=== PATIENT | female | born 1940 | race Caucasian/White ===

== ENCOUNTER 2022-07-22 18:33 | Emergency (ER) | payer MEDICARE, OTHER ==
[2022-07-22 18:44] VITALS: TEMP 98
[2022-07-22 19:18] LABS: Basophils % (A) 0 %; Eosinophils # (A) 0.1 k/uL (0-0.7); Eosinophils % (A) 1 %; HCT 43.7 % (34.0-46.0); HGB 14.8 gm/dL (11.4-16.0); Lymphocytes # (A) 1.9 k/uL (1.0-4.8); Lymphocytes % (A) 14 %; MCHC 33.9 g/dL (31.0-37.0); MCV 97.2 fL (80.0-100.0); Mean Platelet Volume 7.5; Monocytes # (A) 0.5 k/uL (0-1.0); Monocytes % (A) 4 %; Neutrophils # (A) 10.6 k/uL (1.3-7.7); Neutrophils % (A) 80 %; Platelet Count 236 k/uL (150-450); RDW 12.6 % (11.5-15.5); WBC 13.3 k/uL (3.8-10.6)
--- NOTE | 2022-07-22 19:18 | XR ---
EXAMINATION TYPE: XR femur LT DATE OF EXAM: 07/22/2022 7:08 PM INDICATION: Patient age:Female; 81 years old; Reason for study: Fall; COMPARISON: None TECHNIQUE: The left femur was examined in frontal lateral projections. FINDINGS: Acute fracture of the distal left femur around patient's total knee arthroplasty.. No addit ional fractures. The proximal femur looks intact. There is mild degeneration changes of the left hip. IMPRESSION: Prosthetic fracture involving the left femur with displacement posteriorly of the knee.
--- NOTE | 2022-07-22 19:20 | XR ---
EXAMINATION TYPE: XR chest 1V DATE OF EXAM: 07/22/2022 7:08 PM COMPARISON: Chest radiographs from TECHNIQUE: XR chest 1V Frontal view of the chest. CLINICAL INDICATION:Female, 81 years old with history of Difficulty breathing ; FINDINGS: Lungs/Pleura: Low lung volumes are present. There is no evidence of pleural effusion, focal consolida tion, or pneumothorax. Pulmonary vascularity: Unremarkable. Heart/mediastinum: Cardiomediastinal silhouette is prominent in size. Atherosclerotic calcifications are seen in the aorta. Musculoskeletal: No acute osseous pathology. There is fixation hardware in the lower cervical spine. IMPRESSION: Low lung volumes, no acute cardiopulmonary disease/process.
[2022-07-22 19:29] LABS: Albumin 3.6 g/dL (3.5-5.0); Calcium 8.8 mg/dL (8.4-10.2); Potassium 4.3 mmol/L (3.5-5.1); Total Bilirubin 2.5 mg/dL (0.2-1.3); Total Protein 6.2 g/dL (6.3-8.2)
[2022-07-22 20:24] LABS: Partial Thromboplastin Time 23.3 sec (22.0-30.0); Prothrombin Time 10.7 sec (9.0-12.0)
[2022-07-22 20:26] VITALS: BP 108/59; PULSE 90; RESP 16
[2022-07-22] MEDS ORDERED: MORPHINE SULFATE 2 MG/ML SYRINGE IVP STA (20:28)
--- NOTE | 2022-07-22 20:30 | ED ---
General Adult HPI - General Chief complaint: Fall Stated complaint: fall Time Seen by Provider: 07/22/22 18:34 Source: patient, EMS, RN notes reviewed, old records reviewed Mode of arrival: EMS Limitations: no limitations - History of Present Illness Initial comments: This is an 81-year-old female who lost her balance the steps and fell and hurt her distal femur on the left. Patient states she had a knee replacement there are many years ago. Patient states her old doctor was Dr. Galvez. Patient states any movement hurts just above the knee. Patient denies hip pain patient denies ankle or foot pain. Patient denies hitting her head or her neck. Patient denies any upper extremity pain patient denies any back pain belly pain or chest pain. - Related Data Allergies Allergy/AdvReac Type Severity Reaction Status Date / Time hydromorphone [From Dilaudid] AdvReac Hallucinati Verified 07/22/22 18:44 ons Review of Systems ROS Statement: Those systems with pertinent positive or pertinent negative responses have been documented in the HPI. ROS Other: All systems not noted in ROS Statement are negative. Past Medical History Additional Past Medical History / Comment(s): hx of kidney stones Past Surgical History: Appendectomy, Hysterectomy, Orthopedic Surgery, Tonsillectomy Smoking Status: Former smoker Past Alcohol Use History: None Reported Past Drug Use History: None Reported General Exam - General Exam Comments Initial Comments: GENERAL: Patient is well-developed and well-nourished. Patient is nontoxic and well- hydrated and is in moderate distress. ENT: Neck is soft and supple. No significant lymphadenopathy is noted. Oropharynx is clear. Moist mucous membranes. Neck has full range of motion without eliciting any pain. EYES: The sclera were anicteric and conjunctiva were pink and moist. Extraocular movements were intact and pupils were equal round and reactive to light. Eyelids were unremarkable. PULMONARY: Unlabored respirations. Good breath sounds bilaterally. No audible rales rhonc hi or wheezing was noted. CARDIOVASCULAR: There is a regular rate and rhythm without any murmurs gallops or rubs. ABDOMEN: Soft and nontender with normal bowel sounds. SKIN: Skin is clear with no lesions or rashes and otherwise unremarkable. NEUROLOGIC: Patient is alert and oriented x3. Cranial nerves II through XII are grossly intact. Motor and sensory are also intact. Normal speech, volume and content. Symmetrical smile. MUSCULOSKELETAL: Patient is unable to move the left knee. Patient is extremely tender above the left knee and it does appear to be some fullness in that area. Patient has good capillary refill and good pulses distally.. LYMPHATICS: No significant lymphadenopathy is noted PSYCHIATRIC: Normal psychiatric evaluation Limitations: no limitations Course Vital Signs 07/22/22 07/22/22 18:36 20:21 Temperature 98 F Pulse Rate 86 90 Respiratory 18 16 Rate Blood Pressure 148/87 108/59 O2 Sat by Pulse 97 95 Oximetry Medical Decision Making - Medical Decision Making X-ray of the femur was interpreted by me. X-ray shows a distal femur fracture just above the knee replacement. I spoke with Dr. Nuñez and I spoke with the trauma surgeon Dr. Alfaro at [facility] and they both accepted the patient. Patient had a knee immobilizer placed. I interpret EKG EKG shows sinus rhythm at 89 bpm IN interval 144 QRS is 94 QT interval 3 5070 QTC is 44 per patient's EKG shows no ST segment elevation or depression. - Lab Data Result diagrams: 07/22/22 19:13 07/22/22 19:13 Lab Results 07/22/22 07/22/22 07/22/22 Range/Units 19:13 19:13 20:11 WBC 13.3 H (3.8-10.6) k/uL RBC 4.50 (3.80-5.40) m/uL Hgb 14.8 (11.4-16.0) gm/dL Hct 43.7 (34.0-46.0) % MCV 97.2 (80.0-100.0) fL MCH 33.0 (25.0-35.0) pg MCHC 33.9 (31.0-37.0) g/dL RDW 12.6 (11.5-15.5) % Plt Count 236 (150-450) k/uL MPV 7.5 Neutrophils % 80 % Lymphocytes % 14 % Monocytes % 4 % Eosinophils % 1 % Basophils % 0 % Neutrophils # 10.6 H (1.3-7.7) k/uL Lymphocytes # 1.9 (1.0-4.8) k/uL Monocytes # 0.5 (0-1.0) k/uL Eosinophils # 0.1 (0-0.7) k/uL Basophils # 0.0 (0-0.2) k/uL PT 10.7 (9.0-12.0) sec INR 1.0 (<1.2) APTT 23.3 (22.0-30.0) sec Sodium 142 (137-145) mmol/L Potassium 4.3 (3.5-5.1) mmol/L Chloride 112 H (98-107) mmol/L Carbon Dioxide 21 L (22-30) mmol/L Anion Gap 9 mmol/L BUN 21 H (7-17) mg/dL Creatinine 1.30 H (0.52-1.04) mg/dL Est GFR (CKD-EPI)AfAm 45 (>60 ml/min/1.73 sqM) Est GFR (CKD-EPI)NonAf 39 (>60 ml/min/1.73 sqM) Glucose 119 H (74-99) mg/dL Calcium 8.8 (8.4-10.2) mg/dL Total Bilirubin 2.5 H (0.2-1.3) mg/dL AST 130 H (14-36) U/L ALT 31 (4-34) U/L Alkaline Phosphatase 87 (38-126) U/L Total Protein 6.2 L (6.3-8.2) g/dL Albumin 3.6 (3.5-5.0) g/dL Disposition Clinical Impression: Fall, Femoral distal fracture Disposition: OTHER INSTITUTION NOT DEFINED Is patient prescribed a controlled substance at d/c from ED?: No Referrals: Marck Fallon MD [Primary Care Provider] - 1-2 days Time of Disposition: 20:30 - Out of Hospital Transfer - Req. Specs Out of Hospital Transfer - Requested Specifics: Other Emergency Center ([facility]
== END 2022-07-22 21:59 | disposition other institution (70) ==
LOC: EC 18:33
DX: S72.402A Unspecified fracture of lower end of left femur, initial encounter for closed fracture (principal); Z87.891 Personal history of nicotine dependence; Z88.5 Allergy status to narcotic agent; Z87.442 Personal history of urinary calculi; Z90.49 Acquired absence of other specified parts of digestive tract; W10.9XXA Fall (on) (from) unspecified stairs and steps, initial encounter
CPT/HCPCS: 36415; 93005; 80053; 85025; 85610; 85730; 73552; 71045; 99284; 96374; J2270; 99285